=== PATIENT | female | born 1980 | race African-American/Black ===

== ENCOUNTER → 2017-05-22 | Outpatient (CLI) | payer MEDICAID ==
[2017-05-22 17:00] LABS: BASO % 0.3 % (0.0-2.0); EOS # 0.2 (0.0-0.7); EOS % 2.7 % (0-4.0); GRAN # 5.4 (1.4-6.5); GRAN % 61.8 % (42.2-75.2); HEMATOCRIT 42.1 % (37.0-47.0); LYMPH # 2.6 (1.2-3.4); LYMPH % 29.4 % (20.0-51.0); MEAN CELL VOLUME 93 fl (80.0-100.0); MEAN CORPUSCULAR HEMOGLOBIN 31 pg (27.0-31.0); MEAN CORPUSCULAR HGB CONC 33 g/dl (33.0-37.0); MEAN PLATELET VOLUME 10.5 fl (7.4-10.4); MONO # 0.5 (0.1-0.6); MONO % 5.7 % (1.7-9.3); PLATELET COUNT 329 K/mm3 (130-400); RED BLOOD COUNT 4.54 M/mm3 (4.10-5.30); WHITE BLOOD COUNT 8.7 K/mm3 (4.8-10.8)
[2017-05-22 17:03] LABS: ADJUSTED CALCIUM 9.3 mg/dL (8.4-10.2); ALBUMIN 4.4 gm/dL (3.5-5.0); BILIRUBIN,TOTAL 0.5 mg/dL (0.0-1.0); CALCIUM 9.6 mg/dL (8.4-10.2); CHOLESTEROL RISK RATIO 2.4; CREATININE, serum 0.64 mg/dL (0.52-1.25); POTASSIUM 4.1 mmol/L (3.4-5.0); TOTAL PROTEIN 7.4 gm/dL (6.4-8.2)
[2017-05-22 17:33] LABS: TSH w REFLEX 0.897 uIU/mL (0.465-4.680)
== END ==
LOC: COL.LAB 10:21
PROVIDERS: Family Medicine
DX: F32.9 Major depressive disorder, single episode, unspecified (principal)

== ENCOUNTER 2018-01-15 17:23 | Emergency (ER) | payer MEDICAID ==
[~2018-01-15] VITALS: Ht 157.5 cm; Wt 90.9 kg
[2018-01-15 17:36] VITALS: BP 129/58; TEMP 98.4
[2018-01-15] MEDS ORDERED: NORCO 325 MG-51 TAB PO (18:06)
[2018-01-15] MEDS ORDERED: AMOXICILLIN 50500 MG PO (18:06)
[2018-01-15 18:27] VITALS: PULSE 64
== END 2018-01-15 18:27 | disposition home or self-care (01) ==
LOC: COL.ER 17:23
DX: K02.9 Dental caries, unspecified (principal); F17.210 Nicotine dependence, cigarettes, uncomplicated; Z98.51 Tubal ligation status

== ENCOUNTER 2018-06-13 12:18 | Emergency (ER) | payer MEDICAID ==
[~2018-06-13] VITALS: Ht 157.5 cm; Wt 100.0 kg
[~2018-06-13 12:18] MED LIST: AMOXICILLIN 50500 MG PO; NORCO 325 MG-51 TAB PO
[2018-06-13 12:44] VITALS: BP 131/93; TEMP 99.1
[2018-06-13] MEDS ORDERED: PERCOCET 325 MG1 TA2 PO (15:17)
[2018-06-13] MEDS ORDERED: FLEXERIL 1010 MG/TAB PO (15:17)
[2018-06-13 15:43] VITALS: PULSE 87
== END 2018-06-13 15:43 | disposition home or self-care (01) ==
LOC: COL.ER 12:18
DX: M54.6 Pain in thoracic spine (principal); F17.210 Nicotine dependence, cigarettes, uncomplicated; Z98.51 Tubal ligation status
CPT/HCPCS: J1885; J2360

== ENCOUNTER 2018-08-19 10:48 | Emergency (ER) | payer MEDICAID ==
[~2018-08-19] VITALS: Ht 157.5 cm; Wt 95.5 kg
[~2018-08-19 10:48] MED LIST changes: +FLEXERIL 1010 MG/TAB PO; +PERCOCET 325 MG1 TA2 PO
[2018-08-19 10:51] VITALS: BP 135/75
[2018-08-19] MEDS ORDERED: NORCO 325 MG-7.1 TAB PO (11:23)
[2018-08-19] MEDS ORDERED: AMOXICILLIN 50500 MG PO (11:23)
[2018-08-19 11:35] VITALS: PULSE 87; TEMP 98.6
== END 2018-08-19 11:35 | disposition home or self-care (01) ==
LOC: COL.ER 10:48
DX: K02.9 Dental caries, unspecified (principal); F17.210 Nicotine dependence, cigarettes, uncomplicated; Z98.51 Tubal ligation status

== ENCOUNTER 2018-08-22 18:26 | Emergency (ER) | payer MEDICAID ==
[~2018-08-22] VITALS: Ht 157.5 cm; Wt 95.5 kg
[~2018-08-22 18:26] MED LIST changes: +NORCO 325 MG-7.1 TAB PO
[2018-08-22 18:27] VITALS: BP 145/78; TEMP 98.8
[2018-08-22] MEDS ORDERED: AMOXICILLIN 8751 TAB PO (18:51)
[2018-08-22 19:07] VITALS: PULSE 80
== END 2018-08-22 19:25 | disposition home or self-care (01) ==
LOC: COL.ER 18:26
DX: K02.9 Dental caries, unspecified (principal); F17.210 Nicotine dependence, cigarettes, uncomplicated; Z98.51 Tubal ligation status
CPT/HCPCS: J0696

== ENCOUNTER 2018-09-24 13:11 | Emergency (ER) | payer MEDICAID ==
[~2018-09-24] VITALS: Ht 157.5 cm; Wt 100.0 kg
[~2018-09-24 13:11] MED LIST changes: +AMOXICILLIN 8751 TAB PO
[2018-09-24 13:23] VITALS: BP 135/80; TEMP 98.8
[2018-09-24] MEDS ORDERED: AMOXICILLIN 8751 TAB PO (14:09)
[2018-09-24 14:10] VITALS: PULSE 92
[2018-09-24] MEDS ORDERED: NORCO 325 MG-51 TAB PO (14:10)
[2018-09-24] MEDS ORDERED: PERCOCET 325 MG1 TA2 PO (15:13)
== END 2018-09-24 15:20 | disposition home or self-care (01) ==
LOC: COL.ER 13:11
DX: K08.89 Other specified disorders of teeth and supporting structures (principal); F17.210 Nicotine dependence, cigarettes, uncomplicated

== ENCOUNTER 2018-10-25 14:51 | Emergency (ER) | payer MEDICAID ==
[~2018-10-25] VITALS: Ht 157.5 cm; Wt 100.0 kg
[2018-10-25 14:56] VITALS: BP 131/83; TEMP 97.9
[2018-10-25 15:33] LABS: BASO # 0.1 (0.0-0.2); BASO % 0.5 % (0.0-2.0); EOS # 1.3 (0.0-0.7); EOS % 13.7 % (0-4.0); GRAN # 4.1 (1.4-6.5); HEMATOCRIT 41.8 % (37.0-47.0); HEMOGLOBIN 13.8 g/dl (12.5-16.0); LYMPH # 3.4 (1.2-3.4); LYMPH % 36.1 % (20.0-51.0); MEAN CELL VOLUME 95 fl (80.0-100.0); MEAN CORPUSCULAR HEMOGLOBIN 32 pg (27.0-31.0); MEAN CORPUSCULAR HGB CONC 33 g/dl (33.0-37.0); MEAN PLATELET VOLUME 10.1 fl (7.4-10.4); MONO # 0.5 (0.1-0.6); MONO % 5.6 % (1.7-9.3); PLATELET COUNT 289 K/mm3 (130-400); RED BLOOD COUNT 4.38 M/mm3 (4.10-5.30); REDCELL DISTRIBUTION WIDTH-CV 13.6 % (11.5-14.5)
[2018-10-25 15:45] LABS: ANION GAP 6 mmol/L (7-16); BLOOD UREA NITROGEN 16 mg/dL (7-17); CALCIUM 9.3 mg/dL (8.4-10.2); CARBON DIOXIDE 27 mmol/L (22-30); CHLORIDE 107 mmol/L (98-107); CREATININE, serum 0.75 (0.52-1.25); GLUCOSE 114 mg/dL (74-106); POTASSIUM 3.9 mmol/L (3.4-5.0); SODIUM 140 mmol/L (137-145)
[2018-10-25 15:49] LABS: C-REACTIVE PROTEIN < 0.5 mg/dL (0.0-0.9)
[2018-10-25 15:54] LABS: ERYTHROCYTE SEDIMENTATION RATE 7 mm/hr (0-20)
[2018-10-25] MEDS ORDERED: PERCOCET 325 MG1 TA2 PO (16:02)
[2018-10-25] MEDS ORDERED: MEDROL 4MG DOSPA4 MG PO (16:02)
[2018-10-25] MEDS ORDERED: FLEXERIL 1010 MG/TAB PO (16:02)
[2018-10-25 16:59] VITALS: PULSE 86
== END 2018-10-25 16:58 | disposition home or self-care (01) ==
LOC: COL.ER 14:51
PROVIDERS: Emergency Medicine
DX: M54.41 Lumbago with sciatica, right side (principal); F17.210 Nicotine dependence, cigarettes, uncomplicated; Z98.51 Tubal ligation status
CPT/HCPCS: J1170; J7512